=== PATIENT | female | born 1985 | race Caucasian/White ===

== ENCOUNTER → 2017-06-01 | Outpatient (CLI) | payer OTHER ==
[~2017-06-01] MED LIST: CLON-364 PO; METADATE PO; SERTRALINE PO; VITAMIN C PO; VITAMIN D PO
[2017-06-01 12:44] LABS: HEMATOCRIT 38.3 % (34.6-47.8); HEMOGLOBIN 12.8 g/dL (11.7-16.4); WHITE BLOOD COUNT 8.8 x10^3/uL (3.4-10)
== END | disposition home or self-care (01) ==
LOC: STAR 12:04
PROVIDERS: ATTEND Obstetrics & Gynecology Female Pelvic Medicine and Reconstructive Surgery
DX: Z01.818 Encounter for other preprocedural examination (principal); N80.9 Endometriosis, unspecified; N94.6 Dysmenorrhea, unspecified
CPT/HCPCS: 36415; 84703; 85025

== ENCOUNTER 2017-06-05 06:12 | Day surgery (SDC) | payer OTHER ==
[~2017-06-05] VITALS: Ht 167.6 cm; Wt 133.5 kg
[2017-06-05] MEDS ORDERED: EPINEPHRINE 1 MG/ML, 1ML ONE (06:43)
[2017-06-05] MEDS ORDERED: BUPIVACAINE/PF 0.25% ONE (06:43)
[2017-06-05] MEDS ORDERED: FLUORESCEIN SODIUM 500 MG/5 ML ONE (06:43)
[2017-06-05] MEDS ORDERED: LACTATED RINGERS 1,000 ML IV SCH ×2 (06:45→09:07)
[2017-06-05 06:46] VITALS: BP 143/87
[2017-06-05] MEDS ORDERED: SCOPOLAMINE PATCH, 1MG PATCH.TD72 TD ONE ×2 (07:02)
[2017-06-05] MEDS ORDERED: ACETAMINOPHEN 500 MG TABLET ONE ×2 (07:02)
[2017-06-05] MEDS ORDERED: FENTANYL PF 100 MCG/2ML ONE ×2 (07:19→09:15)
[2017-06-05] MEDS ORDERED: PROPOFOL 50 ML ONE (07:20)
[2017-06-05] MEDS ORDERED: LIDOCAINE 1%, 2ML SQ PRN (07:30)
[2017-06-05] MEDS ORDERED: LIDOCAINE-MPF 2% ,5ML ONE (07:31)
[2017-06-05] MEDS ORDERED: METOCLOPRAMIDE 5 MG/ML, 2ML ONE (07:31)
[2017-06-05] MEDS ORDERED: ONDANSETRON 2MG/ML, 2ML ONE (07:31)
[2017-06-05] MEDS ORDERED: DEXAMETHASONE 4 MG/ML, 1ML ONE (07:31)
[2017-06-05] MEDS ORDERED: KETOROLAC 30 MG/1 ML ONE (07:31)
[2017-06-05] MEDS ORDERED: NEOSTIGMINE 1 MG/ML, 10ML ONE (07:31)
[2017-06-05] MEDS ORDERED: CEFAZOLIN 1,000 MG ONE (07:31)
[2017-06-05] MEDS ORDERED: SUCCINYLCHOLINE 20 MG/ML, 10ML ONE (07:31)
[2017-06-05] MEDS ORDERED: GLYCOPYRROLATE 0.4 MG/2 ML, 2ML ONE (07:31)
[2017-06-05] MEDS ORDERED: ROCURONIUM 10 MG/ML ONE (07:31)
[2017-06-05] MEDS ORDERED: ONDANSETRON 2MG/ML, 2ML IVPush PRN ×2 (08:00→09:30)
[2017-06-05] MEDS ORDERED: HYDROmorphone 1 MG/ML, 1ML IV PRN (08:00)
[2017-06-05] MEDS ORDERED: MIDAZOLAM 1 MG/ML, 2ML IV PRN (08:00)
[2017-06-05] MEDS ORDERED: ACETAMINOPHEN 325 MG TABLET PO PRN (08:00)
[2017-06-05] MEDS ORDERED: hydrALAzine 20 MG/ML, 1ML IV PRN (08:00)
[2017-06-05] MEDS ORDERED: LABETALOL 5MG/ML, 20ML IV PRN (08:00)
[2017-06-05] MEDS ORDERED: PROMETHAZINE 25 MG/ML, 1ML IV PRN (08:00)
[2017-06-05] MEDS ORDERED: MEPERIDINE/PF 25MG/0.5ML IVPush PRN (08:00)
[2017-06-05] MEDS ORDERED: OXYcodone 5 MG/5 ML ORAL.SOL UDC PO PRN ×2 (08:00→09:30)
[2017-06-05] MEDS ORDERED: PROPOFOL 250 ML ONE (08:09)
[2017-06-05] MEDS ORDERED: ACETAMINOPHEN 325 MG TABLET ONE (09:15)
[2017-06-05] MEDS ORDERED: ACETAMINOPHEN 650 MG/20.3 ML UDC ONE (09:15)
[2017-06-05] MEDS ORDERED: OXYcodone 5 MG/5 ML ORAL.SOL UDC ONE (09:16)
[2017-06-05] MEDS: FENTANYL PF 100 MCG/2ML IV PRN ×4 (09:22→10:26)
[2017-06-05] MEDS ORDERED: IBUPROFEN 600 MG TABLET PO PRN (09:30)
[2017-06-05] MEDS ORDERED: PROMETHAZINE 25 MG SUPP PR ONE (09:30)
== END 2017-06-05 13:40 ==
LOC: OUT 06:12
PROVIDERS: ATTEND Obstetrics & Gynecology Female Pelvic Medicine and Reconstructive Surgery
DX: N80.1 Endometriosis of ovary (principal); N92.0 Excessive and frequent menstruation with regular cycle; N94.6 Dysmenorrhea, unspecified; F41.9 Anxiety disorder, unspecified; F32.9 Major depressive disorder, single episode, unspecified; F17.210 Nicotine dependence, cigarettes, uncomplicated; Z98.890 Other specified postprocedural states
CPT/HCPCS: 52000; 58571; 58662; 88307; J0171; J0330; J0690; J1100; J1885; J2405; J2704; J2710; J2765; J3010; J3490; J7120